=== PATIENT | male | born 1985 | race Caucasian/White ===

== ENCOUNTER 2023-12-29 08:17 | Emergency (ER) | payer SELFPAY ==
[~2023-12-29] VITALS: Ht 170.2 cm; Wt 70.0 kg
[2023-12-29 08:25] VITALS: O2SAT 98
[2023-12-29] MEDS: DICYCLOMINE 10 MG/5 ML ORAL SYR PO STA (08:53)
[2023-12-29] MEDS ORDERED: ONDANSETRON 4MG ODT PO STA (08:53)
[2023-12-29] MEDS ORDERED: MAGNESIUM/ALUMINUM HYDROXIDE/SIMETHICONE 30ML UDC PO STA ×2 (08:53→10:51)
[2023-12-29 09:28] LABS: BASOPHILS % 0.5 % (0.0-2.0); DIFFERENTIAL COMMENT 0; EOSINOPHILS % 0.8 % (0.0-5.0); HEMATOCRIT. 51.9 % (42.0-52.0); HEMOGLOBIN. 18.7 g/dL (14.0-18.0); MEAN CORPUSCULAR HEMOGLOBIN 33.9 pg (28.0-32.0); MEAN CORPUSCULAR VOLUME 94.3 fL (80.0-94.0); MEAN PLATELET VOLUME 7.9 fl (7.4-10.4); MONOCYTES % 7.7 % (2.0-8.0); PLATELET 218 x1000/uL (130-400); RED CELL DISTRIBUTION WIDTH 12.8 % (11.6-14.6); WHITE BLOOD COUNT 10.6 x1000/uL (4.5-11.0)
[2023-12-29 09:34] LABS: CHLORIDE 97 mEq/L (98-107); POTASSIUM 3.7 mEq/L (3.5-5.1); SODIUM 131 mEq/L (136-145)
[2023-12-29 09:35] LABS: CARBON DIOXIDE 24 mEq/L (21-32)
[2023-12-29 09:36] LABS: CALCIUM 9.8 mg/dL (8.7-10.4)
[2023-12-29 09:40] LABS: CREATININE 0.9 mg/dL (0.6-1.3)
[2023-12-29 09:41] LABS: GLUCOSE 103 mg/dL (70-105); UREA NITROGEN BLOOD 7 mg/dL (9-23)
[2023-12-29 09:42] LABS: ALANINE AMINOTRANSFERASE 11 IU/L (10-49); ALBUMIN 5.1 g/dL (3.2-4.8); ASPARTATE AMINOTRANSFERASE 23 IU/L (<34)
[2023-12-29 09:43] LABS: BILIRUBIN DIRECT 0.4 mg/dL (<=3.0); BILIRUBIN TOTAL 1.2 mg/dL (0.1-1.0); PROTEIN TOTAL 8.5 g/dL (6.0-8.3)
[2023-12-29 09:49] LABS: INR 0.9; PROTHROMBIN TIME 10.2 sec (9.6-11.0)
[2023-12-29] MEDS ORDERED: ONDA4TAB50 PO (10:26)
[2023-12-29] MEDS ORDERED: TOPUD PO (10:26)
[2023-12-29] MEDS: MAGNESIUM/ALUMINUM HYDROXIDE/SIMETHICONE 30ML UDC PO NR (11:00)
[2023-12-29] MEDS: DICYCLOMINE HCL 10MG CAPSULE PO NR (11:17)
[2023-12-29] MEDS: ONDANSETRON 4MG ODT PO NR (11:18)
[2023-12-29 11:21] VITALS: BP 126/89; PULSE 78; RESP 16; TEMP 97.8
== END 2023-12-29 11:23 | disposition home or self-care (01) ==
LOC: ER 08:17
DX: R10.9 Unspecified abdominal pain (principal); R11.2 Nausea with vomiting, unspecified
CPT/HCPCS: 99284; 80076; 80048; 83690; 85025; 85610; 36415; Q0162